=== PATIENT | female | born 1960 | race Caucasian/White ===

== ENCOUNTER → 2019-08-04 | Outpatient (CLI) | payer BC ==
--- NOTE | 2019-08-04 16:30 | Diagnostic Imaging Report ---
PROCEDURE: MRI right joint lower extremity without contrast. TECHNIQUE: Multiplanar, multisequence non contrast-enhanced MRI of the right lower extremity was accomplished. INDICATION: Right leg injury years ago with pain. COMPARISON: Radiographs from 02/29/2012 FINDINGS: No acute fracture is seen in the right knee. There is sequela from remote trauma of the proximal right tibia with an old fracture seen along the posterior cortex. There is osseous bridging across the tibia. There is bone marrow edema and subcortical cystlike change at the lateral compartment. Marginal osteophytes are seen in all three compartments. There is a linear defect along the medial aspect of the patella in the vertical dimension with mild associated edema. There is a small right knee joint effusion. There is a 1 cm joint body anteriorly. The articular cartilage in the patellofemoral compartment demonstrates a 5 mm full-thickness defect at the lateral trochlea. The articular cartilage in the medial compartment demonstrates moderate thinning and surface irregularity with heterogeneity. The articular cartilage in the lateral compartment is nearly completely absent. There is extensive maceration and complex tearing of the medial meniscus, particularly the posterior horn and body, extending into the anterior horn. The lateral meniscus demonstrates horizontal tearing of the posterior horn and body. The anterior cruciate ligament demonstrates increased signal and mucoid degeneration with possible partial thickness tearing, but no full-thickness tear seen. The posterior cruciate ligament appears intact. The medial collateral ligament is thickened and mildly bowed, but appears intact. The lateral collateral ligamentous complex appears intact. The extensor mechanism is intact. The medial and lateral retinacula are intact. There are numerous foci of susceptibility artifact about the knee, likely from prior surgery. The soft tissues about the knee are otherwise unremarkable. IMPRESSION: 1. Tricompartmental degenerative change and cartilage loss in the right knee, most severe in the lateral compartment. 2. Extensive tearing and maceration of the lateral meniscus. Medial meniscal tear as well. 3. Mucoid degeneration and possible partial tearing of the anterior cruciate ligament. 4. Small right knee joint effusion with a prominent anterior joint body. 5. Findings from remote trauma and postsurgical change. The vertical fracture in the medial patella is thought to be subacute or chronic. Recommend correlation with the site of pain. Dictated by: Dictated on workstation # [id number]
== END ==
LOC: RAD 15:06
PROVIDERS: ATTEND Orthopaedic Surgery
DX: M17.11 Unilateral primary osteoarthritis, right knee (principal); M94.8X6 Other specified disorders of cartilage, lower leg; S83.281A Other tear of lateral meniscus, current injury, right knee, initial encounter; M25.461 Effusion, right knee; Z98.890 Other specified postprocedural states
CPT/HCPCS: 73721